=== PATIENT | female | born 1940 | race Caucasian/White ===

== ENCOUNTER 2021-09-06 17:26 | Emergency (ER) | payer MEDICARE, OTHER, SELFPAY ==
[2021-09-06 17:44] VITALS: BP 175/82; PULSE 71; RESP 18; TEMP 36.7; O2SAT 96; BMI 22.9
--- NOTE | 2021-09-06 17:50 | ED_ITS ---
HPI - Abdominal Pain General: Chief Complaint: Abdominal Pain Stated Complaint: Lower abd pain Time Seen by Provider: 09/06/21 17:50 History of Present Illness: Ms Collins is a 81-year-old lady who presents to the emergency department due to intermittent abdominal pain. She first noticed symptoms without specific provoking factor about 1 month ago. Initially symptoms were intermittent and lasted for perhaps 30 minutes or an hour however overall these have become more frequent. Pain is left lower quadrant and patient has somewhat difficulty identifying the quality however she identifies it is not sharp. Intensity when present is moderate. Does not seem to correlate with any specific activity or eating. She has noted change in bowel movements and has not had a bowel movement for approximately 1 week. She tried flaxseed and [id number] medication without significant relief. Denies similar episodes in past. No other specific changes in health, exacerbating, or alleviating factors identified. Onset (ago): week(s) Pain Consistency: intermittent Location: LLQ Severity: moderate Quality: cramping Radiation: none Migration to: no migration Exacerbating factors: nothing Relieving factors: nothing Associated Symptoms: Reports change in bowel habits and constipation Treatments prior to arrival: other (Flaxseeds) Review of Systems General: Reports: 10 or more systems reviewed and unremarkable except in HPI and below GI: Reports: constipation and change in bowel habits PFSH ED PFSH: Medical History (Updated 09/14/21 @ 00:00 by ) HLD (hyperlipidemia) HTN (hypertension) Surgical History (Updated 09/06/21 @ 18:35 by Luisito Solorio MD) No significant past surgical history Family History (Updated 09/06/21 @ 18:35 by Luisito Solorio MD) Denies family history of Cancer Physical Exam Const: COMMON NORMALS: alert GENERAL APPEARANCE: cooperative and well developed HENMT: COMMON NORMALS: normocephalic and atraumatic HEAD & SCALP: nor mocephalic and atraumatic Eye: COMMON NORMALS: conjunctivae normal CONJUNCTIVA: Yes conjunctivae normal SCLERA: sclerae normal Neck/C-Spine: COMMON NORMALS: supple GENERAL: Yes trachea midline Resp: COMMON NORMALS: normal respiratory effort and clear to auscultation bilaterally EFFORT & INSPECTION: Yes able to speak in complete sentences AUSCULTATION: clear to auscultation bilaterally Cardio: COMMON NORMALS: regular rate and regular rhythm RATE: regular rate RHYTHM: regular rhythm GI: COMMON NORMALS: Soft to palpation PALPATION: Yes Soft to palpation, No Tenderness to palpation present (GI), No Guarding due to palpation present (GI), No Rigid due to palpation and No Rebound tenderness present Extremity: GENERAL: Yes normal exam except as noted and No edema Neuro: COMMON NORMALS: moves all extremities SENSORIUM/ORIENTATION: Yes alert and No Orientation impaired Psych: COMMON NORMALS: mental status grossly normal and Normal thought process present THOUGHT PROCESS: Normal thought process present Course ED course: - Patient was seen and evaluated by me at bedside - Patient placed on cardiac monitors, IV access obtained - Initial evaluation notable for exam as above - Labs personally interpreted by me. EKG showing sinus rhythm, no STEMI. - Labs notable for no significant hematologic or metabolic abnormality. No evidence of urinary tract infection. - Imaging notable for abundant stool in the colon without other acute pathology - Upon serial reexamination after treatment the patient was similar - Based on patient history, evaluation, and testing as interpreted the most likely cause of the patient's condition is constipation and abdominal pain - The results of ED evaluation were discussed with the patient including prescriptions and/or symptomatic cares (if applicable) including appropriate and responsible use, followup plan, and return precautions. The patient verbalized understanding and felt safe for discharge. - Patient discharged in satisfactory condition. Note: Click bubbles or prepopulated armstrong in note writing are used for assistance with data collection and billing and are inherently more limited than narrative and other text portions of this note. Please use narrative for additional clinical history and defer to narrative/free test for any case of contradictory information. If information appears in only free text or click bubble it should be considered present or absent as reported. Please contact note communications writer for clarifications of clinical information or contradictory information. MDM is a brief summary, contradictory or erroneous seeming information should be clarified and full note should be reviewed. Vital Signs: Vital signs: Vital Signs Temperature 98.1 F 09/06/21 18:12 Pulse Rate 71 09/06/21 18:12 Respiratory Rate 18 09/06/21 18:12 Blood Pressure 175/82 09/06/21 18:12 Pulse Oximetry 96 09/06/21 18:12 MDM - Abdominal Pain Medical Decision Making 81-year-old lady presents. Nonsurgical abdomen on exam. Laboratory studies unremarkable. CT notable for constipation. Patient comfortable with treatment at home as opposed to ED treatment. Satisfactory for outpatient management. Medical Records I reviewed the patient's medical records. Lab Data I reviewed the patient's lab results. : 09/06/21 18:09/06/21 18: Labs/Radiology: Radiology Impressions Abdomen/Pelvis CT 09/06/21 18: IMPRESSION: No acute abnormality. No colitis or diverticulitis. There is abundant colonic stool. Laboratory Results WBC 5.6 10^3/uL (4.0-10.0) 09/06/21 18: RBC 4.45 10^6/uL (4.1-5.3) 09/06/21 18: Hgb 14.1 g/dL (11.5-15.3) 09/06/21: Hct 40.7 % (37.0-47.0) 09/06/21 18: MCV 91.5 fl (81-99) 09/06/21 18: MCH 31.7 pg (28.0-34.0) 09/06/21: MCHC 34.6 g/dL (30.0-36.0) 09/06/21 18: RDW 12.2 % (12.1-15.1) 09/06/21: Plt Count 231 10^3/cmm (130-400) 09/06/21 MPV 10.4 fL (7.4-10.4) 09/06/21 18: Neut % (Auto) 51.0 % 09/06/21 18: Lymph % (Auto) 35.5 % 09/06/21 18: [place] % (Auto) 10.3 % 09/06/21 18: Eos % (Auto) 2.1 % 09/06/21 18: Baso % (Auto) 0.9 % 09/06/21: Neut # (Auto) 2.86 10^3/uL (1.8-7.7) 09/06/21 18: Lymph # (Auto) 2.0 10^3/uL (0.8-4.8) 09/06/21 18: [place] # (Auto) 0.6 10^3/uL (0.2-0.9) 09/06/21 18:27 Eos # (Auto) 0.1 10^3/uL (0.0-0.8) 09/06/21 18:27 Baso # (Auto) 0.1 10^3/uL (0.0-0.1) 09/06/21 18:27 Nucleated RBC % (auto) 0 % 09/06/21 18: Nucleated RBCs # 0.0 /100WBC 09/06/21 18: Sodium 139 mmol/L (136-145) 09/06/21 18: Potassium 4.5 mmol/L (3.5-5.1) 09/06/21 18: Chloride 104 mmol/L (98-107) 09/06/21 18: Carbon Dioxide 26 mmol/L (22-29) 09/06/21 18: Anion Gap 13.5 (5-19) 09/06/21 18: BUN 18 mg/dL (8-23) 09/06/21 18: Creatinine 0.8 mg/dL (0.5-0.9) 09/06/21 18: GFR Calculation Not Reportable 09/06/21 18: Glucose 91 mg/dL (65-115) 09/06/21 18: Calculated Osmolality 289 mOsm/kg (285-295) 09/06/21 18: Lactate 0.7 mmol/L (0.5-2.2) 09/06/21 18: Calcium 9.3 mg/dL (8.5-10.5) 09/06/21 18: Total Bilirubin 0.4 mg/dL (0.15-1.2) 09/06/21 18: AST 28 U/L (0-32) 09/06/21 18: ALT 15 U/L (0-33) 09/06/21 18: Alkaline Phosphatase 43 IU/L (35-105) 09/06/21 18: Total Protein 6.8 g/dL (6.6-8.7) 09/06/21 18: Albumin 4.3 g/dL (3.5-5.2) 09/06/21 18: Globulin 2.5 g/dL (1.3-4.6) 09/06/21 18: Lipase 22 U/L (13-60) 09/06/21 18:27 Urine Color Yellow (Yellow) 09/06/21 18:35 Urine Appearance Clear (CLEAR) 09/06/21 18:35 Urine pH 6 (5-7) 09/06/21 18:35 Ur Specific [place] 1.010 (1.005-1.030) 09/06/21 18:35 Urine Protein Neg (Negative) 09/06/21 18:35 Urine Glucose (UA) 4+ (Normal) H 09/06/21 18:35 Urine Ketones Negative (Negative) 09/06/21 18:35 Urine Blood Neg (Negative) 09/06/21 18:35 Urine Nitrate Negative (Negative) 09/06/21 18:35 Urine Bilirubin Neg (Negative) 09/06/21 18:35 Urine Urobilinogen Norm mg/dL (Negative) 09/06/21 18:35 Ur Leukocyte Esterase Negative (Negative) 09/06/21 18:35 Discharge Plan Discharge Patient Disposition: Home Clinical Impression: Constipation Condition: Stable Prescriptions: New Miralax 17 gram powder in packet 17 g PO DAILY Qty: 30 0RF magnesium citrate Solution 150 ml PO Q1H Qty: 296 0RF Discharge Orders: Discharge ED (Routine); Ordered 09/06/21 Ordered By: Luisito Solorio Discharge Diet: Usual diet Discharge Activity: Increase activity as tolerated Patient Instructions: Constipation (ED), Abdominal Pain (ED) Activity Restrictions/Additional Instructions: Thank you for visiting the emergency department. You were seen and evaluated for abdominal pain. The exact cause of your symptoms is unclear though likely related to constipation. I recommend the following regimen: Please take MiraLAX 1 capful mixed with electrolyte solution 4 times tomorrow. If you do not have a bowel movement by the evening please take magnesium citrate. Then adjust MiraLAX dosing between 1 and 3 times per day to ensure soft bowel movements multiple times per day. Please ensure that you are staying hydrated. Please follow-up with your primary care provider. Please return to the emergency department if you do not have bowel movement, increased pain, or anything else that you are concerned about and feel needs emergency department evaluation. Coding Level of Care Code ED Glazier Helper for Jeff Fwgabriella Exam Comprehensive
--- NOTE | 2021-09-06 18:07 | CTR_ITS ---
PROCEDURE INFORMATION: Exam: CT Abdomen And Pelvis With Contrast Exam date and time: 09/06/2021 7:40 PM Age: 81 years old Clinical indication: Constipation; Abdominal pain; Localized; Left lower quadrant (llq); Additional info: Llq pain, change in bowel movements TECHNIQUE: Imaging protocol: Computed tomography of the abdomen and pelvis with contrast. Radiation optimization: All CT scans at this facility use at least one of these dose optimization techniques: automated exposure control; mA and/or kV adjustment per patient size (includes targeted exams where dose is matched to clinical indication); or iterative reconstruction. Contrast material: OMNI 350; Contrast volume: 90 ml; Contrast route: INTRAVENOUS (IV); COMPARISON: No relevant prior studies available. RADIATION DOSE METRICS: Total DLP (mGy-cm): 895.15 FINDINGS: Diaphragm: A small hiatal hernia is present. Liver: There is a diffuse decrease in hepatic parenchymal density, consistent with fatty infiltration. Gallbladder and bile ducts: Normal. No calcified stones. No ductal dilation. Pancreas: The pancreas is normal. Spleen: The spleen is normal. Adrenal glands: The adrenal glands are normal. Kidneys and ureters: There is no evidence of hydronephrosis. There is no evidence of renal calcifications. Stomach and bowel: There is no evidence of intestinal perforation or obstruction. There is no evidence of colitis/diverticulitis. There is moderately excessive colonic stool content. Appendix: A normal appendix is identified. Intraperitoneal space: Unremarkable. No free air. No significant fluid collection. Vasculature: The aorta demonstrates mild atherosclerotic calcification. Lymph nodes: Unremarkable.No enlarged lymph nodes. Urinary bladder: Unremarkable as visualized. Reproductive: Unremarkable as visualized. Bones/joints: Unremarkable. No acute fracture. Soft tissues: Unremarkable. CT/CT abdomen pelvis w con* [id number] IMPRESSION: No acute abnormality. No colitis or diverticulitis. There is abundant colonic stool.
[2021-09-06 18:12] VITALS: BP 175/82; PULSE 71; RESP 18; TEMP 36.7; O2SAT 96
[2021-09-06 18:44] LABS: Basophils # 0.1 10^3/uL (0.0-0.1); Basophils % 0.9 %; Eosinophils # 0.1 10^3/uL (0.0-0.8); Eosinophils % 2.1 %; Hematocrit 40.7 % (37.0-47.0); Hemoglobin 14.1 g/dL (11.5-15.3); Lymphocytes % 35.5 %; Mean Corpuscular HGB Conc 34.6 g/dL (30.0-36.0); Mean Corpuscular Hemoglobin 31.7 pg (28.0-34.0); Mean Corpuscular Volume 91.5 fl (81-99); Mean Platelet Volume 10.4 fL (7.4-10.4); Monocytes # 0.6 10^3/uL (0.2-0.9); Monocytes % 10.3 %; Neutrophils # 2.86 10^3/uL (1.8-7.7); Nucleated Red Blood Cells % 0 %; Platelet Count 231 10^3/cmm (130-400); Red Blood Count 4.45 10^6/uL (4.1-5.3); Red Cell Distribution Width 12.2 % (12.1-15.1); White Blood Count 5.6 10^3/uL (4.0-10.0)
[2021-09-06 18:47] LABS: Add Urine Microscopic? NO; Charge for UA Resulting for Rev
[2021-09-06 18:57] LABS: Urine Appearance Clear (CLEAR); Urine Color Yellow (Yellow); pH Urine 6 (5-7)
[2021-09-06 18:58] LABS: Bilirubin Urine Neg (Negative); Blood Urine Neg (Negative); Glucose Urine UA 4+ (Normal); Ketones Urine Negative (Negative); Leukocyte Esterase Urine Negative (Negative); Nitrate Urine Negative (Negative); Protein Urine Neg (Negative); Urobilinogen Urine Norm (Negative)
[2021-09-06 19:05] LABS: Lactate (Lactic Acid level) 0.7 mmol/L (0.5-2.2)
[2021-09-06 19:06] LABS: Alanine Aminotransferase 15 U/L (0-33); Albumin Level 4.3 g/dL (3.5-5.2); Alkaline Phosphatase 43 IU/L (35-105); Anion Gap 13.5 (5-19); Aspartate Amino Transferase 28 U/L (0-32); Blood Urea Nitrogen 18 mg/dL (8-23); Calcium 9.3 mg/dL (8.5-10.5); Carbon Dioxide 26 mmol/L (22-29); Chloride 104 mmol/L (98-107); Globulin 2.5 g/dL (1.3-4.6); Glucose 91 mg/dL (65-115); Lipase 22 U/L (13-60); Osmolality Calculated 289 mOsm/kg (285-295); Potassium 4.5 mmol/L (3.5-5.1); Sodium 139 mmol/L (136-145); Total Bilirubin 0.4 mg/dL (0.15-1.2); Total Protein 6.8 g/dL (6.6-8.7)
[2021-09-06] MEDS: iohexol 350 mg/mL 100 mL Btl IV (19:41)
== END 2021-09-06 20:21 | disposition home or self-care (01) ==
PROVIDERS: Emergency Provider Emergency Medicine
DX: K59.00 Constipation, unspecified (principal); I10 Essential (primary) hypertension; E78.5 Hyperlipidemia, unspecified
CPT/HCPCS: 74177; 80053; 81003; 83605; 83690; 85025; 99283; Q9967

== ENCOUNTER 2021-09-29 17:19 | Emergency (ER) | payer MEDICARE, OTHER, SELFPAY ==
[2021-09-29 17:58] VITALS: BP 178/103; PULSE 76; RESP 16; TEMP 36.3; O2SAT 95; BMI 22.4
--- NOTE | 2021-09-29 20:36 | XRR_ITS ---
PROCEDURE INFORMATION: Exam: XR Abdomen Exam date and time: 09/29/2021 8:40 PM Age: 81 years old Clinical indication: Abdominal pain; Additional info: Abd pain TECHNIQUE: Imaging protocol: Radiologic exam of the abdomen. Views: Frontal supine view of the abdomen. 1 View. COMPARISON: CT abdomen pelvis w con* [id number] 09/06/2021 7:40 PM FINDINGS: Gastrointestinal tract: There is a moderate amount of stool scattered in the colon. No impaction. Probable phleboliths are noted in the pelvis. No bowel dilation. Bones/joints: No acute abnormality. Moderate degenerative changes are noted in the spine. XR/XR KUB [id number] IMPRESSION: No acute findings.
--- NOTE | 2021-09-29 20:39 | ED_ITS ---
HPI - Abdominal Pain General: Chief Complaint: Abdominal Pain Stated Complaint: Abd pains Time Seen by Provider: 09/29/21 20:34 Source: patient Mode of arrival: ambulatory Limitations: no limitations History of Present Illness: 81-year-old female states she been having some abdominal pains over the last month. She was seen here earlier this month had a CT scan that showed constipation states she had been taking stool softeners had some improvement states her pain is now moved to the left upper quadrant states she has had a bowel movement since Tuesday states pain sharp in nature rates it a 4 out of 10 states it is not worse with palpation or movement she states that she is staying. Associated Symptoms: Reports constipation; Denies chills, dysuria and fever(s) Review of Systems Const: Denies: fever(s), chills, body aches or change in appetite Eyes: Denies: blurry vision or eye discomfort ENMT: Denies: throat pain or dental pain Card: Denies: chest pain Resp: Denies: dyspnea GI: Reports: abdominal pain and constipation : Denies: dysuria Musc: Denies: neck pain or back pain Skin/Breast: Denies: rash Neuro: Denies: headache(s) Psych: Denies: depression Armando/Lymph: Denies: easy bruising All/Imm: Denies: urticaria PFSH ED PFSH: Medical History HLD (hyperlipidemia) HTN (hypertension) Surgical History No significant past surgical history Family History Denies family history of Cancer Physical Exam Const: COMMON NORMALS: no acute distress, patient oriented x3 and healthy appearing HENMT: COMMON NORMALS: normocephalic and atraumatic HEAD & SCALP: normocephalic and atraumatic Eye: COMMON NORMALS: Equal, round and reactive pupils present and EOMs intact bilaterally PUPIL: Yes Equal, round and reactive pupils present Neck/C-Spine: COMMON NORMALS: full ROM and supple Chest: COMMONS NORMALS: normal inspection of the chest and normal palpation of entire chest wall Resp: COMMON NORMALS: normal respiratory effort, No retractions, No use of accessory muscles and clear to auscultation bilaterally AUSCULTATION: clear to auscultation bilaterally Cardio: COMMON NORMALS: regular rate, regular rhythm and No murmurs present (Cardio) RATE: regular rate RHYTHM: regular rhythm GI: COMMON NORMALS: Normal to inspection, nondistended, normoactive bowel s ounds present, Soft to palpation, non-tender and no masses PALPATION: Yes Soft to palpation Extremity: COMMON NORMALS: normal to inspection and full ROM Neuro: COMMON NORMALS: patient oriented x3, moves all extremities and no focal motor deficits Psych: COMMON NORMALS: mental status grossly normal, Normal thought process present and cooperative THOUGHT PROCESS: Normal thought process present Skin: COMMON NORMALS: no rashes or lesions noted and no wounds GENERAL SKIN EXAM: no rashes or lesions noted Course Vital Signs: Vital signs: Vital Signs Temperature 97.3 F L 09/29/21 17:58 Pulse Rate 76 09/29/21 17:58 Respiratory Rate 16 09/29/21 17:58 Blood Pressure 178/103 09/29/21 17:58 Pulse Oximetry 95 09/29/21 17:58 MDM - Abdominal Pain Medical Decision Making Patient presents here with abdominal pain likely due to constipation she does have some constipation on her x-ray still. Her exam here is benign she has no tenderness no signs of acute surgical abdomen we will give her lactulose here she is to take MiraLAX again she is to follow-up PCP and return if worsening. Lab Data : 09/29/21 20:45 09/29/21 20:45 Labs/Radiology: Radiology Impressions KUB X-Ray 09/29/21 20:36 IMPRESSION: No acute findings. Laboratory Results WBC 6.9 10^3/uL (4.0-10.0) 09/29/21 20:45 RBC 4.62 10^6/uL (4.1-5.3) 09/29/21 20:45 Hgb 14.6 g/dL (11.5-15.3) 09/29/21 20:45 Hct 44.0 % (37.0-47.0) 09/29/21 20:45 MCV 95.2 fl (81-99) 09/29/21 20:45 MCH 31.6 pg (28.0-34.0) 09/29/21 20:45 MCHC 33.2 g/dL (30.0-36.0) 09/29/21 20:45 RDW 12.4 % (12.1-15.1) 09/29/21 20:45 Plt Count 228 10^3/cmm (130-400) 09/29/21 20:45 MPV 10.1 fL (7.4-10.4) 09/29/21 20:45 Neut % (Auto) 56.0 % 09/29/21 20:45 Lymph % (Auto) 33.1 % 09/29/21 20:45 [place] % (Auto) 8.3 % 09/29/21 20:45 Eos % (Auto) 1.9 % 09/29/21 20:45 Baso % (Auto) 0.6 % 09/29/21 20:45 Neut # (Auto) 3.85 10^3/uL (1.8-7.7) 09/29/21 20:45 Lymph # (Auto) 2.3 10^3/uL (0.8-4.8) 09/29/21 20:45 [place] # (Auto) 0.6 10^3/uL (0.2-0.9) 09/29/21 20:45 Eos # (Auto) 0.1 10^3/uL (0.0-0.8) 09/29/21 20:45 Baso # (Auto) 0.0 10^3/uL (0.0-0.1) 09/29/21 20:45 Nucleated RBC % (auto) 0 % 09/29/21 20:45 Nucleated RBCs # 0.0 /100WBC 09/29/21 20:45 Sodium 137 mmol/L (136-145) 09/29/21 20:45 Potassium 4.3 mmol/L (3.5-5.1) 09/29/21 20:45 Chloride 102 mmol/L (98-107) 09/29/21 20:45 Carbon Dioxide 24 mmol/L (22-29) 09/29/21 20:45 Anion Gap 15.3 (5-19) 09/29/21 20:45 BUN 20 mg/dL (8-23) 09/29/21 20:45 Creatinine 0.9 mg/dL (0.5-0.9) 09/29/21 20:45 GFR Calculation Not Reportable 09/29/21 20:45 Glucose 104 mg/dL (65-115) 09/29/21 20:45 Calculated Osmolality 287 mOsm/kg (285-295) 09/29/21 20:45 Calcium 9.4 mg/dL (8.5-10.5) 09/29/21 20:45 Total Bilirubin 0.3 mg/dL (0.15-1.2) 09/29/21 20:45 AST 27 U/L (0-32) 09/29/21 20:45 ALT 14 U/L (0-33) 09/29/21 20:45 Alkaline Phosphatase 48 IU/L (35-105) 09/29/21 20:45 Total Protein 6.8 g/dL (6.6-8.7) 09/29/21 20:45 Albumin 4.2 g/dL (3.5-5.2) 09/29/21 20:45 Globulin 2.6 g/dL (1.3-4.6) 09/29/21 20:45 Lipase 24 U/L (13-60) 09/29/21 20:45 Discharge Plan Discharge Patient Disposition: Home Clinical Impression: Constipation Condition: Stable Prescriptions: Continued Miralax 17 gram powder in packet 17 g PO DAILY Qty: 30 0RF No Action magnesium citrate Solution 150 ml PO Q1H Qty: 296 0RF Discharge Orders: Discharge ED (Routine); Ordered 09/29/21 Ordered By: Wang Salmeron Discharge Diet: Advance as tolerated Discharge Activity: Resume usual activity Patient Instructions: Constipation (ED) Coding Level of Care Code ED Diplomatic Interpreter for Elisag Fwd Exam Comprehensive
[2021-09-29 20:52] LABS: Basophils % 0.6 %; Eosinophils # 0.1 10^3/uL (0.0-0.8); Eosinophils % 1.9 %; Hemoglobin 14.6 g/dL (11.5-15.3); Lymphocytes # 2.3 10^3/uL (0.8-4.8); Lymphocytes % 33.1 %; Mean Corpuscular HGB Conc 33.2 g/dL (30.0-36.0); Mean Corpuscular Hemoglobin 31.6 pg (28.0-34.0); Mean Corpuscular Volume 95.2 fl (81-99); Mean Platelet Volume 10.1 fL (7.4-10.4); Monocytes # 0.6 10^3/uL (0.2-0.9); Monocytes % 8.3 %; Neutrophils # 3.85 10^3/uL (1.8-7.7); Nucleated Red Blood Cells % 0 %; Platelet Count 228 10^3/cmm (130-400); Red Blood Count 4.62 10^6/uL (4.1-5.3); Red Cell Distribution Width 12.4 % (12.1-15.1); White Blood Count 6.9 10^3/uL (4.0-10.0)
[2021-09-29 21:32] LABS: Alanine Aminotransferase 14 U/L (0-33); Albumin Level 4.2 g/dL (3.5-5.2); Alkaline Phosphatase 48 IU/L (35-105); Blood Urea Nitrogen 20 mg/dL (8-23); Calcium 9.4 mg/dL (8.5-10.5); Carbon Dioxide 24 mmol/L (22-29); Chloride 102 mmol/L (98-107); Globulin 2.6 g/dL (1.3-4.6); Glucose 104 mg/dL (65-115); Lipase 24 U/L (13-60); Osmolality Calculated 287 mOsm/kg (285-295); Sodium 137 mmol/L (136-145); Total Bilirubin 0.3 mg/dL (0.15-1.2); Total Protein 6.8 g/dL (6.6-8.7)
[2021-09-29] MEDS: lactulose oral liq 20 gm/30 mL UDC 30 GM PO (21:40)
[2021-09-29 22:01] LABS: Anion Gap 15.3 (5-19); Aspartate Amino Transferase 27 U/L (0-32); Potassium 4.3 mmol/L (3.5-5.1)
== END 2021-09-29 22:33 | disposition home or self-care (01) ==
PROVIDERS: Emergency Provider Emergency Medicine
DX: K59.00 Constipation, unspecified (principal); I10 Essential (primary) hypertension; E78.5 Hyperlipidemia, unspecified
CPT/HCPCS: 74018; 80053; 83690; 85025; 99284

== ENCOUNTER → 2022-07-14 09:39 | Outpatient (BNVA) | payer MEDICARE, OTHER, SELFPAY | PROVIDERS: Visit Provider Specialist | DX: M17.12 Unilateral primary osteoarthritis, left knee (principal) | CPT/HCPCS: 20610; 73560; 73565; 99204; J7326 ==